=== PATIENT | male | born 1965 | race Caucasian/White ===

== ENCOUNTER 2018-11-06 11:04 | Emergency (ER) | payer OTHER ==
[~2018-11-06] VITALS: Ht 182.9 cm; Wt 113.4 kg
[~2018-11-06 11:04] MED LIST: AMOX1TAB61 PO; LISI1TAB20 PO; Testosterone TP
[2018-11-06] MEDS ORDERED: IV NORMAL SALINE 1000ML BAG 1,000 ML IV ONE (11:15)
--- NOTE | 2018-11-06 11:34 | RAD ---
Portable single view AP chest HISTORY: Syncope. COMPARISON: Image from 02/23/2014, without report. FINDINGS: The heart size is not enlarged. No evidence of pneumothorax. No pleural effusion. No consolidating infiltrate is identified. IMPRESSION: No evidence of consolidating infiltrate. Electronically signed by: Kevin Mendez MD (11/06/2018 11:31 AM) [facility]
--- NOTE | 2018-11-06 11:41 | EKG ---
[facility] [address] [place] [address] Test Date: 2018-11-06 Test Time: 11:13:43 Pat Name: ANITA CORDOBA Department: Room: Gender: M Environmental Engineering Assistant: : 1965 Requested By: TRACEY HARRELL Order Number: [id number] Reading MD: Measurements Intervals [place] Rate: 66 P: 21 WV: 200 QRS: 0 QRSD: 86 T: 11 QT: 368 QTc: 387 Interpretive Statements SINUS RHYTHM LEFTWARD AXIS QRS(T) CONTOUR ABNORMALITY CONSISTENT WITH INFERIOR INFARCT PROBABLY OLD ABNORMAL ECG No previous ECG available for comparison
[2018-11-06 12:14] LABS: BASO % 0 % (0-3); EOS # 0.1 x10^3/uL (0.0-0.7); EOS % 1 % (0-3); HEMATOCRIT 43.1 % (39.0-53.0); LYMPH # 2.1 x10^3/uL (1.0-4.8); LYMPH % 21 % (24-48); MEAN CORPUSCULAR HEMOGLOBIN 30 pg (25-35); MEAN CORPUSCULAR HGB CONC 35 g/dL (31-37); MEAN CORPUSCULAR VOLUME 87 fL (79-100); MONO # 0.5 x10^3/uL (0.0-1.1); MONO % 5 % (0-9); NEUT # 7.4 x10^3/uL (1.8-7.7); NEUT % 73 % (31-73); PLATELET COUNT 189 x10^3/uL (140-400); RED BLOOD COUNT 4.94 x10^6/uL (4.30-5.70); RED CELL DISTRIBUTION WIDTH 13.3 % (11.5-14.5); WHITE BLOOD COUNT 10.1 x10^3/uL (4.0-11.0)
--- NOTE | 2018-11-06 12:14 | RAD ---
Examination: CT head and cervical spine without contrast CT HEAD INDICATION: History of fall COMPARISON: None Available. Exposure: One or more of the following individualized dose reduction techniques were utilized for this examination: 1. Automated exposure control 2. Adjustment of the mA and/or kV according to patient size 3. Use of iterative reconstruction technique TECHNIQUE: 5 mm contiguous axial images were obtained from the skull base to the vertex in both bone and soft tissue algorithm. FINDINGS: Mild bilateral periventricular white matter hypodensities likely chronic small vessel ischemic disease. No evidence of acute intracranial hemorrhage. No extra-axial fluid collections. No mass effect or midline shift. Ventricular size is appropriate. Basal cisterns are patent. No fractures identified.Arthur-white differentiation is preserved.Globes and orbits are within normal limits. Paranasal sinuses and mastoid air cells are clear. IMPRESSION: No acute intracranial findings. CT CERVICAL SPINE INDICATION: History of fall COMPARISON: None Available. Technique: 2.5 mm contiguous axial images were obtained from the skull base through the cervicothoracic junction in both bone and soft tissue algorithm. Additional sagittal and coronal reconstructions were also performed. FINDINGS: Vertebral body height and alignment are maintained. Cervical lordosis is preserved. The lateral masses of C1 are aligned upon C2. No fractures identified. The bony canal is patent throughout. Mild disc bulges identified cervical spine particularly at C4-C5, C5-C6, C6-C7 vertebral levels. The bilateral facets are well aligned. The paraspinous soft tissues are unremarkable. Visualized intracranial contents are unremarkable. Lung apices are clear. IMPRESSION: 1. No acute fracture of cervical spine. Correlate clinically. 2. Mild degenerative changes cervical spine. Electronically signed by: Larry Chew MD (11/06/2018 12:11 PM) [place] [id number]
[2018-11-06 12:23] LABS: CALCIUM 9.1 mg/dL (8.5-10.1); CREATININE 1.2 mg/dL (0.7-1.3); GFR 62.9; POTASSIUM 3.7 mmol/L (3.5-5.1)
[2018-11-06 12:31] LABS: ALBUMIN 3.9 g/dL (3.4-5.0); ALBUMIN/GLOBULIN RATIO 1.1 (1.0-1.7); MAGNESIUM 1.8 mg/dL (1.8-2.4); TOTAL BILIRUBIN 1.2 mg/dL (0.2-1.0); TOTAL PROTEIN 7.6 g/dL (6.4-8.2)
[2018-11-06 12:45] LABS: BILIRUBIN,URINE NEGATIVE (NEG); CLARITY,URINE CLEAR; COLOR,URINE YELLOW; NITRITE,URINE NEGATIVE (NEG); PH,URINE 7.5; PROTEIN,URINE NEGATIVE (NEG-TRACE); UROBILINOGEN,URINE 0.2 mg/dL (0.2 mg/dL)
[2018-11-06 12:51] LABS: HYALINE CASTS, URINE FEW /HPF; SQUAMOUS EPITHELIAL CELL,UR FEW /LPF
[2018-11-06 12:52] LABS: BACTERIA,URINE 0 /HPF (0-FEW); RBC,URINE 0 /HPF (0-2)
[2018-11-06] MEDS ORDERED: DIPHTH,PERTUSS(ACELL),TET TOX 0.5 ML DISP.SYRIN. VAX IM ONE (13:00)
[2018-11-06 13:24] VITALS: BP 129/94
--- NOTE | 2018-11-06 13:44 | PHYS DOC ---
Past Medical History Past Medical History: High Cholesterol, Hypertension Past Surgical History: No Surgical History Alcohol Use: None Drug Use: None Adult General Chief Complaint Chief Complaint: SYNCOPE HPI HPI Patient is a 53 year old male who presents via EMS with complaining of passing out. Patient states he first was an hour outside and felt hot and return inside and felt dizzy and had a syncopal episode and fell on carpeted area and woke up after after few minutes with complaining of headache. Patient denies chest pain, shortness of breath, nausea and vomiting, tinnitus. Patient states he had episodes of syncope more than 20 years ago while he was outside for a while. Last tetanus immunization is unknown. Review of Systems Review of Systems Constitutional: Denies fever or chills [] Eyes: Denies change in visual acuity, redness, or eye pain [] HENT: Denies nasal congestion or sore throat [] Respiratory: Denies cough or shortness of breath [] Cardiovascular: No additional information not addressed in HPI [] GI: Denies abdominal pain, nausea, vomiting, bloody stools or diarrhea [] : Denies dysuria or hematuria [] Musculoskeletal: Denies back pain or joint pain [] Integument: Denies rash or skin lesions [] Neurologic: Denies headache, focal weakness or sensory changes [] Endocrine: Denies polyuria or polydipsia [] All other systems were reviewed and found to be within normal limits, except as documented in this note. Current Medications Current Medications Current Medications Medications (Trade) Dose Ordered Sig/Alvin Start Time Stop Time Status Last Admin Dose Admin Diphtheria/ Tetanus/Acell Pertussis (Boostrix) 0.5 ml ONCE ONCE 11/06/18 13:00 11/06/18 13:02 DC 11/06/18 13:17 0.5 ML Sodium Chloride 1,000 ml @ 1,000 mls/hr 1X ONCE 11/06/18 11:15 11/06/18 12:14 DC 11/06/18 11:57 1,000 MLS/HR Allergies Allergies Allergies Coded Allergies Type Severity Reaction Last Updated Verified No Known Drug Allergies 02/22/14 No Physical Exam Physical Exam Constitutional: Well developed, well nourished, mild distress, non-toxic appearance. [] HENT: Normocephalic, right forehead contusion Eyes: PERRLA, EOMI, conjunctiva normal, no discharge. [] Neck: Normal range of motion, no tenderness, supple, no stridor. [] Cardiovascular:Heart rate regular rhythm, no murmur [] Lungs & Thorax: Bilateral breath sounds clear to auscultation [] Abdomen: Bowel sounds normal, soft, no tenderness, no masses, no pulsatile masses. [] Skin: Warm, dry, no erythema, no rash, right middle finger abrasion. [] Back: No tenderness, no CVA tenderness. [] Extremities: No tenderness, no cyanosis, no clubbing, ROM intact, no edema. [] Neurologic: Alert and oriented X 3, no focal deficits noted. [] Psychologic: Affect normal, judgement normal, mood normal. [] Current Patient Data Vital Signs Vital Signs Date Time Temp Pulse Resp B/P (MAP) Pulse Ox O2 Delivery O2 Flow Rate FiO2 11/06/18 11:07 98.8 69 16 155/89 (111) 95 Room Air 98.8 Lab Values Laboratory Tests Test 11/06/18 12:00 11/06/18 12:35 White Blood Count 10.1 x10^3/uL (4.0-11.0) Red Blood Count 4.94 x10^6/uL (4.30-5.70) Hemoglobin 15.0 g/dL (13.0-17.5) Hematocrit 43.1 % (39.0-53.0) Mean Corpuscular Volume 87 fL (79-100) Mean Corpuscular Hemoglobin 30 pg (25-35) Mean Corpuscular Hemoglobin Concent 35 g/dL (31-37) Red Cell Distribution Width 13.3 % (11.5-14.5) Platelet Count 189 x10^3/uL (140-400) Neutrophils (%) (Auto) 73 % (31-73) Lymphocytes (%) (Auto) 21 % (24-48) L Monocytes (%) (Auto) 5 % (0-9) Eosinophils (%) (Auto) 1 % (0-3) Basophils (%) (Auto) 0 % (0-3) Neutrophils # (Auto) 7.4 x10^3/uL (1.8-7.7) Lymphocytes # (Auto) 2.1 x10^3/uL (1.0-4.8) Monocytes # (Auto) 0.5 x10^3/uL (0.0-1.1) Eosinophils # (Auto) 0.1 x10^3/uL (0.0-0.7) Basophils # (Auto) 0.0 x10^3/uL (0.0-0.2) Sodium Level 143 mmol/L (136-145) Potassium Level 3.7 mmol/L (3.5-5.1) Chloride Level 104 mmol/L (98-107) Carbon Dioxide Level 31 mmol/L (21-32) Anion Gap 8 (6-14) Blood Urea Nitrogen 12 mg/dL (8-26) Creatinine 1.2 mg/dL (0.7-1.3) Estimated GFR (Cockcroft-Gault) 62.9 BUN/Creatinine Ratio 10 (6-20) Glucose Level 117 mg/dL (70-99) H Calcium Level 9.1 mg/dL (8.5-10.1) Magnesium Level 1.8 mg/dL (1.8-2.4) Total Bilirubin 1.2 mg/dL (0.2-1.0) H Aspartate Amino Transferase (AST) 23 U/L (15-37) Alanine Aminotransferase (ALT) 26 U/L (16-63) Alkaline Phosphatase 54 U/L (46-116) Creatine Kinase 103 U/L (39-308) Creatine Kinase MB (Mass) 0.5 ng/mL (0.0-3.6) Creatine Kinase MB Relative Index 0.5 % (0-4) Troponin I Quantitative < 0.017 ng/mL (0.000-0.055) Total Protein 7.6 g/dL (6.4-8.2) Albumin 3.9 g/dL (3.4-5.0) Albumin/Globulin Ratio 1.1 (1.0-1.7) Urine Collection Type Unknown Urine Color Yellow Urine Clarity Clear Urine pH 7.5 Urine Specific [place] 1.010 Urine Protein Negative mg/dL (NEG-TRACE) Urine Glucose (UA) Negative mg/dL (NEG) Urine Ketones (Stick) Negative mg/dL (NEG) Urine Blood Negative (NEG) Urine Nitrite Negative (NEG) Urine Bilirubin Negative (NEG) Urine Urobilinogen Dipstick 0.2 mg/dL (0.2 mg/dL) Urine Leukocyte Esterase Negative (NEG) Urine RBC 0 /HPF (0-2) Urine WBC 1-4 /HPF (0-4) Urine Squamous Epithelial Cells Few /LPF Urine Transitional Epithelial Cells Occ /LPF Urine Bacteria 0 /HPF (0-FEW) Urine Hyaline Casts Few /HPF Urine Mucus Slight /LPF Laboratory Tests 11/06/18 12:00 Laboratory Tests 11/06/18 12:00 EKG EKG EKG interpreted by me. EKG at 1113 showed normal sinus rhythm at rate of 66, left poole axis, poor R-wave progress in anteroseptal leads, normal NV and QT intervals, no acute ST and T-wave elevation. Radiology/Procedures Radiology/Procedures [][address] [address] IMAGING REPORT Signed PATIENT: ANITA CORDOBA ACCOUNT: [id number] : 1965 LOCATION: ER AGE: 53 SEX: M EXAM STATUS: REG ER ORD. PHYSICIAN: TRACEY HARRELL MD REASON: syncope PROCEDURE: PORTABLE CHEST 1V Portable single view AP chest HISTORY: Syncope. COMPARISON: Image from 02/23/2014, without report. FINDINGS: The heart size is not enlarged. No evidence of pneumothorax. No pleural effusion. No consolidating infiltrate is identified. IMPRESSION: No evidence of consolidating infiltrate. Electronically signed by: Kevin Mendez MD (11/06/2018 11:31 AM) [facility] DICTATED and SIGNED BY: KEVIN MENDEZ MD DATE: 11/06/[address] [address] IMAGING REPORT Signed PATIENT: ANITA CORDOBA ACCOUNT: [id number] : 1965 LOCATION: ER AGE: 53 SEX: M EXAM STATUS: REG ER ORD. PHYSICIAN: TRACEY HARRELL MD REASON: fall PROCEDURE: CT HEAD AND CERVICAL SPINE WO Examination: CT head and cervical spine without contrast CT HEAD INDICATION: History of fall COMPARISON: None Available. Exposure: One or more of the following individualized dose reduction techniques were utilized for this examination: 1. Automated exposure control 2. Adjustment of the mA and/or kV according to patient size 3. Use of iterative reconstruction technique TECHNIQUE: 5 mm contiguous axial images were obtained from the skull base to the vertex in both bone and soft tissue algorithm. FINDINGS: Mild bilateral periventricular white matter hypodensities likely chronic small vessel ischemic disease. No evidence of acute intracranial hemorrhage. No extra-axial fluid collections. No mass effect or midline shift. Ventricular size is appropriate. Basal cisterns are patent. No fractures identified.Arthur-white differentiation is preserved.Globes and orbits are within normal limits. Paranasal sinuses and mastoid air cells are clear. IMPRESSION: No acute intracranial findings. CT CERVICAL SPINE INDICATION: History of fall COMPARISON: None Available. Technique: 2.5 mm contiguous axial images were obtained from the skull base through the cervicothoracic junction in both bone and soft tissue algorithm. Additional sagittal and coronal reconstructions were also performed. FINDINGS: Vertebral body height and alignment are maintained. Cervical lordosis is preserved. The lateral masses of C1 are aligned upon C2. No fractures identified. The bony canal is patent throughout. Mild disc bulges identified cervical spine particularly at C4-C5, C5-C6, C6-C7 vertebral levels. The bilateral facets are well aligned. The paraspinous soft tissues are unremarkable. Visualized intracranial contents are unremarkable. Lung apices are clear. IMPRESSION: 1. No acute fracture of cervical spine. Correlate clinically. 2. Mild degenerative changes cervical spine. Electronically signed by: Larry Chew MD (11/06/2018 12:11 PM) [facility] DICTATED and SIGNED BY: LARRY CHEW MD DATE: 11/06/18 1211 Course & Med Decision Making Course & Med Decision Making Pertinent Labs and Imaging studies reviewed. (See chart for details) Evaluation of patient in ER showed 53-year-old male patient with a syncopal episode after working outside. Patient had unremarkable physical exam except for contusion of right forehead. CT of head and cervical spine and labs was unremarkable. Patient refuses hospitalization for syncopal evaluation Dragon Disclaimer Dragon Disclaimer This electronic medical record was generated, in whole or in part, using a voice recognition dictation system. Departure Departure Impression: Primary Impression: Syncope Additional Impressions: Facial contusion Noncompliance by refusing service Disposition: HOME, SELF-CARE (@1343) Condition: IMPROVED Referrals: KEVIN TELLO MD (PCP) Patient Instructions: Contusion, Syncope Additional Instructions: Drink plenty of liquids Follow-up with your primary care physician in 3-5 days Return to ER if not getting better Problem Qualifiers Primary Impression: Syncope Syncope type: unspecified Qualified Codes: R55 - Syncope and collapse Additional Impressions: Facial contusion Encounter type: sequela Qualified Codes: S00.83XS - Contusion of other part of head, sequela TRACEY HARRELL MD Nov 06, 2018 13:44
== END 2018-11-06 14:11 | disposition home or self-care (01) ==
LOC: ER 11:04
DX: S00.83XA Contusion of other part of head, initial encounter (principal); R55 Syncope and collapse; Z91.14 Patient's other noncompliance with medication regimen; R51 Headache; I10 Essential (primary) hypertension; E78.00 Pure hypercholesterolemia, unspecified; W18.39XA Other fall on same level, initial encounter; Y93.89 Activity, other specified; Y92.89 Other specified places as the place of occurrence of the external cause; Y99.8 Other external cause status
CPT/HCPCS: 36415; 70450; 71045; 72125; 80053; 81001; 82553; 83735; 84484; 85025; 90471; 90715; 93005; 96360; 99285; J7030